=== PATIENT | female | born 2005 | race Caucasian/White ===

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

== ENCOUNTER → 2025-01-29 | Outpatient (CLI) | payer OTHER ==
[~2025-01-29] MED LIST changes: +ONDA-282 PO
== END ==
LOC: M RAD 15:26
PROVIDERS: ATTEND Physician Assistant Medical
DX: M79.672 Pain in left foot (principal)